=== PATIENT | female | born 1940 | race Caucasian/White ===

== ENCOUNTER 2023-08-03 16:48 | Observation (INO) | payer MEDICARE, BC ==
[2023-08-03] MEDS ORDERED: Sodium Chloride 0.9% 10 ML Syringe FLUSH PRN ×2 (16:58→23:32)
[2023-08-03 17:17] LABS: BASOPHILS ABSOLUTE AUTO 0.03 10^3/uL (0.00-0.10); BASOPHILS PERCENT AUTO 0.4 % (0.0-1.0); EOSINOPHILS PERCENT AUTO 2.6 % (1.0-3.0); HEMATOCRIT 39.4 % (37.0-47.0); HEMOGLOBIN 12.4 g/dL (12.0-16.0); IMMATURE GRAN ABSOLUTE AUTO 0.01 10^3/uL (0.00-0.50); IMMATURE GRAN PERCENT AUTO 0.1 % (0.0-5.0); LYMPHOCYTES ABSOLUTE AUTO 3.14 10^3/uL (1.00-4.00); LYMPHOCYTES PERCENT AUTO 41.3 % (20.0-40.0); MEAN CORPUSCULAR HEMOGLOBIN 28.1 pg (27.0-31.0); MEAN CORPUSCULAR HGB CONC 31.5 g/dL (32.0-36.0); MEAN CORPUSCULAR VOLUME 89.3 fL (82.0-92.0); MEAN PLATELET VOLUME 9.6 fL (7.4-10.4); MONOCYTES ABSOLUTE AUTO 0.86 10^3/uL (0.10-0.80); MONOCYTES PERCENT AUTO 11.3 % (2.0-8.0); NEUTROPHILS ABSOLUTE AUTO 3.37 10^3/uL (2.50-7.00); NEUTROPHILS PERCENT AUTO 44.3 % (50.0-70.0); PLATELET COUNT,PLT 236 10^3/uL (150-400); RED BLOOD CELL COUNT 4.41 10^6/uL (3.80-5.50); RED CELL DISTRIBUTION WIDTH 13.7 % (11.5-14.5); WHITE BLOOD CELL COUNT,WBC 7.61 10^3/uL (5.00-10.00)
[2023-08-03 17:34] LABS: ALBUMIN 3.42 g/dL (3.40-5.00); ANION GAP 14.7 mmol/L (5-15); BILIRUBIN TOTAL 0.3 mg/dL (0.2-1.0); CALCIUM 8.4 mg/dL (8.7-10.3); CARBON DIOXIDE,CO2 27.2 mmol/L (21.0-32.0); CREATININE 0.99 mg/dL (0.51-1.17); EST CRCL DRUG DOSING (CG) 36.24 mL/min; POTASSIUM,K 3.9 mmol/L (3.5-5.1); PROTEIN TOTAL,TP 7.1 g/dL (6.4-8.2)
[2023-08-03 18:05] LABS: APPEARANCE,URINE CLEAR (CLEAR); BILIRUBIN,URINE NEGATIVE (NEGATIVE); COLOR,URINE YELLOW (YELLOW); GLUCOSE,URINE NEGATIVE (NEGATIVE); KETONES,URINE NEGATIVE (NEGATIVE); LEUKOCYTE ESTERASE,URINE NEGATIVE (NEGATIVE); NITRITE,URINE NEGATIVE (NEGATIVE); OCCULT BLOOD,URINE TRACE-INTACT (NEGATIVE); PROTEIN,URINE NEGATIVE (NEGATIVE); UROBILINOGEN,URINE 0.2 E.U./dL (0.2-1.0)
[2023-08-03 18:12] LABS: BACTERIA,URINE RARE /HPF (NONE TO FEW); EPITHELIAL CELLS,URINE FEW /LPF; RBC,URINE 0-5 /HPF (0-5); WBC,URINE 0-5 /HPF (0-5)
[2023-08-03] MEDS ORDERED: Temazepam 15 MG Cap PO PRN (20:24)
[2023-08-03] MEDS: ALPRAZolam 0.25 MG Tab PO PRN (21:38)
[2023-08-03] MEDS: hydrALAZINE 10 MG Tab PO PRN (21:38)
[2023-08-04] MEDS: Acetaminophen 325 MG Tab PO SCH (08:51)
[2023-08-04] MEDS: Hydrochlorothiazide 25 MG Tab PO SCH (08:51)
[2023-08-04] MEDS: Pravastatin 20 MG Tab PO SCH (08:51)
[2023-08-04] MEDS: Lisinopril 20 MG Tab PO SCH (10:00)
== END 2023-08-04 11:10 | disposition home or self-care (01) ==
LOC: KA.ED 16:48 → KA.MS 18:21
PROVIDERS: ADMIT Family Medicine; ATTEND Family Medicine
DX: R55 Syncope and collapse (principal); I10 Essential (primary) hypertension; E78.00 Pure hypercholesterolemia, unspecified; G30.9 Alzheimer's disease, unspecified; F02.84 Dementia in other diseases classified elsewhere, unspecified severity, with anxiety; Z79.899 Other long term (current) drug therapy; Z98.890 Other specified postprocedural states
CPT/HCPCS: 36415; 70450; 71045; 80053; 81001; 82140; 83605; 84484; 85025; 93005; 93010; 99223-GT; 99239-GT; 99284; A9270-GY; G0378; Q3014